=== PATIENT | male | born 1995 | race Two or more races ===

== ENCOUNTER → 2018-09-08 16:00 | Emergency (ER) | payer BC, OTHER ==
[~2018-09-08 16:00] MED LIST: Metoprolol Tartrate TAB* 25 MG PO ONE; NS 0.9% 1000 ML** 1,000 ML IV ONE; Potassium Chlor TAB* 20 MEQ TAB.ER PO ONE
--- NOTE | 2018-09-08 16:16 | ED ---
Palpitations / Dysrhythmia - HPI Summary HPI Summary: A 23 y/o male presents to the ED c/o fast HR. In the ED room, the patient has a pulse of 110 BPM, O2 saturation of 98%, respiratory of 14, and blood pressure of 132/81. According to the patient, he was in his [employer] studies class when he felt his HR "go pretty high". He stated that he was sitting in a chiar for class and not exerting himself. He ended up stepping out of class and went to [facility] as he felt slightly dizzy. Additionally, he felt warm around his chest area. He noted that he has never experienced this before. 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 The patient had a catheter, but everything came back normal. He denies any calf pain, fever, or appetite changes , but does have SOB. - History of Current Complaint Time Seen by Provider: 09/08/18 16:05 Hx Obtained From: Patient Onset/Duration: Sudden Onset, Lasting Hours, Still Present Timing: Constant Severity Currently: None Character: Fast Aggravating: Nothing Alleviating: Nothing Associated Signs & Symptoms: Dizzy, Chest Pain - Allergy/Home Medications Allergies/Adverse Reactions: Allergies Allergy/AdvReac Type Severity Reaction Status Date / Time No Known Allergies Allergy Verified 09/08/18 16:05 PMH/Surg Hx/FS Hx/Imm Hx Endocrine/Hematology History: Denies: Hx Diabetes Cardiovascular History: Denies: Hx Hypertension - Surgical History Surgery Procedure, Year, and Place: ear surgery - Family History Known Family History: Positive: Hypertension - Social History Alcohol Use: Occasionally Substance Use Type: Reports: Marijuana Smoking Status (MU): Never Smoked Tobacco Review of Systems Negative: Fever Positive: Chest Pain Positive: Shortness Of Breath Positive: Other - NEGATIVE: APPETITE CHANGES Positive: Other - NEGATIVE: CALF PAIN Neurological: Other - POSITIVE: DIZZINESS All Other Systems Reviewed And Are Negative: Yes Physical Exam - Summary Physical Exam Summary: VITAL SIGNS: Reviewed. GENERAL: Patient is a well-developed and nourished male who is lying comfortable in the stretcher. Patient is not in any acute respiratory distress. HEAD AND FACE: No signs of trauma. No ecchymosis, hematomas or skull depressions. No sinus tenderness. EYES: PERRLA, EOMI x 2, No injected conjunctiva, no nystagmus. EARS: Hearing grossly intact. Ear canals and tympanic membranes are within normal limits. MOUTH: Oropharynx within normal limits. NECK: Supple, trachea is midline, no adenopathy, no JVD, no carotid bruit, no c- spine tenderness, neck with full ROM. CHEST: Symmetric, no tenderness at palpation LUNGS: Clear to auscultation bilaterally. No wheezing or crackles. CVS: sinus tachycardia, S1 and S2 present, no murmurs or gallops appreciated. ABDOMEN: Soft, non-tender. No signs of distention. No rebound no guarding, and no masses palpated. Bowel sounds are normal. EXTREMITIES: FROM in all major joints, no edema, no cyanosis or clubbing. NEURO: Alert and oriented x 3. No acute neurological deficits. Speech is normal and follows commands. SKIN: Dry and warm Triage Information Reviewed: Yes Vital Signs Reviewed: Yes Diagnostics - Laboratory Result Diagrams: 09/08/18 17:20 09/08/18 17:20 Lab Statement: Any lab studies that have been ordered have been reviewed, and results considered in the medical decision making process. - EKG 1605 Cardiac Rate: Tachycardia - 116 BPM EKG Rhythm: Sinus Tachycardia - 116 BPM Summary of EKG Findings: NO ST ELEVATIONS. Course/Dx - Course Assessment/Plan: A 23 y/o male presents to the ED c/o fast HR. In the ED room, the patient has a pulse of 110 BPM, O2 saturation of 98%, respiratory of 14, and blood pressure of 132/81. According to the patient, he was in his [employer] studies class when he felt his HR "go pretty high". He stated that he was sitting in a chiar for class and not exerting himself. He ended up stepping out of class and went to [facility] as he felt slightly dizzy. Additionally, he felt warm around his chest area. He noted that he has never experienced this before. 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 The patient had a catheter, but everything came back normal. He denies any calf pain, fever, or appetite changes, but does have SOB. All blood work without any significant abnormality. Chest x-ray impression: No acute pathology. EKG shows a sinus tachycardia 116 bpm. In the ED the patient was hydrated. Blood work without any significant abnormality except for potassium at 3.4, AST of 82, troponin 0.00. The patient was given potassium chloride. The patient also was given 1 dose of metoprolol and HIS symptoms have resolved. At this point the patient is asymptomatic. However he requested to follow with the it security consultant. The patient may benefit from a Holter monitor. The patient will be discharged home with follow-up with PCP and also cardiology. Patient is hemodynamically stable alert and oriented 3. - Diagnoses Differential Diagnosis/HQI/PQRI: Positive: Paroxymal SVT Provider Diagnoses: Palpitations, Arrhythmia Discharge - Sign-Out/Discharge Documenting (check all that apply): Patient Departure - DISCHARGE - Discharge Plan Condition: Stable Disposition: HOME Patient Education Materials: Heart Palpitations (ED) Referrals: [facility]FERR[facility] [Outside] - 3 Days [facility] [Outside] - 3 Days Stiven Hogue MD [Medical Doctor] - 3 Days Additional Instructions: FOLLOW UP WITH PRIMARY CARE PROVIDER IN 3 DAYS. FOLLOW UP WITH CARDIOLOGY IN 3 DAYS. FOLLOW UP WITH YOUR PRIMARY CARE PROVIDER WITHIN ONE WEEK FOR HIGH BLOOD PRESSURE NOTED TODAY. RETURN TO ED FOR ANY NEW OR WORSENING SYMPTOMS. - Billing Disposition and Condition Condition: STABLE Disposition: Home - Attestation Statements Document Initiated by Austyn: Yes Documenting [place]: Adrian Alaniz Provider For Whom Austyn is Documenting (Include Credential): Sean Banda MD Scribe Attestation: Adrian Arias scribed for Sean Banda MD on 09/08/18 at 1850. Scribe Documentation Reviewed: Yes Provider Attestation: The documentation as recorded by the Adrian pimentel accurately reflects the service I personally performed and the decisions made by me, Sean Banda MD Status of Scribe Document: Viewed Attestations Scribe Attestation: Adrian Alaniz User Type: Provider
[2018-09-08 17:31] LABS: ABS Basophils 0.1 10^3/ul (0-0.2); ABS Eosinophils 0 10^3/ul (0-0.6); ABS Lymphocytes 1.3 10^3/ul (1.0-4.8); ABS Monocytes 0.7 10^3/ul (0-0.8); ABS Neutrophils 5.5 10^3/ul (1.5-7.7); ABS Nucleated RBC 0 10^3/ul; Eosinophil % 0.5 %; Hematocrit 50 % (42-52); Hemoglobin 16.9 g/dl (14.0-18.0); Lymphocyte % 17.1 %; Mean Corpuscular HGB Conc 34 g/dl (31-36); Mean Corpuscular Hemoglobin 31 pg (27-31); Mean Corpuscular Volume 92 fL (80-94); Mean Platelet Volume 9.3 fL (7.4-10.4); Nucleated Red Blood Cells % 0; Platelet Count 260 10^3/ul (150-450); Red Blood Count 5.46 10^6/ul (4.00-5.40); Red Cell Distribution Width 13 % (10.5-15); White Blood Count 7.6 10^3/ul (3.5-10.8)
[2018-09-08 17:47] LABS: Albumin 4.8 g/dL (3.2-5.2); Albumin/Globulin Ratio 1.4 (1-3); BUN/Creatinine Ratio 9.8 (8-20); Calcium 9.8 mg/dL (8.6-10.3); EGFR African American 143.5 (>60); EGFR Non-African American 118.6 (>60); Globulin 3.4 g/dL (2-4); Potassium 3.4 mmol/L (3.5-5.0); Total Bilirubin 0.6 mg/dL (0.2-1.0); Total Protein 8.2 g/dL (6.4-8.9)
[2018-09-08 17:51] LABS: CKMB ng/mL 0.8 ng/mL (0.6-6.3)
[2018-09-08 18:50] VITALS: BP 109/71
[2018-09-08 18:50] LABS: TSH (Thyroid Stimulating Horm) 2.08 mcIU/mL (0.34-5.60)
== END | disposition home or self-care (01) ==
LOC: ED 16:00
DX: I49.9 Cardiac arrhythmia, unspecified (principal); R00.2 Palpitations; R42 Dizziness and giddiness; R07.9 Chest pain, unspecified; R06.02 Shortness of breath
CPT/HCPCS: 36415; 71046; 80053; 82550; 82553; 83605; 83735; 83880; 84443; 84484; 85025; 85379; 93005; 96360; 96361; 99283; A9270-GY